=== PATIENT | female | born 1930 | race African-American/Black ===

== ENCOUNTER 2018-12-19 08:58 | Emergency (ER) | payer MEDICARE, OTHER ==
--- NOTE | 2018-12-19 09:47 | ER Document Report ---
ED Medical Screen (RME) - General Chief Complaint: Weakness Stated Complaint: POSSIBLE STROKE Time Seen by Provider: 12/19/18 09:37 Primary Care Provider: KERA FIERRO MD [Primary Care Provider] - Follow up as needed Notes: HPI: 88-year-old female brought in by her daughters for concern of left-sided weakness since Wednesday morning, approximately 24 hours ago was her last known well time. He states she had a right-sided lean when she was sitting in her chair and she appeared to have some facial droop where she could not drink liquids appropriately and it was coming out of her mouth yesterday around 2pm. They also state her left leg appears heavy and she is not walking normally and walks like she is going to fall over. No history of this before. She has not been compliant with all of her medications to include her thyroid medication. She denies pain anywhere. No fall or trauma. She does take a baby aspirin daily. no other blood thinners. No prior history of NV or CVA per patient and daughter at bedside. She also has some urinary frequency. no other uti sx. She is a diabetic and states her sugars have been running high and her sugar was 340 yesterday when they checked it before giving her insulin. No other changes in medication or diet. she has not sought care until now. No other complaints at this time. pcp was dr bailey before he . she hasn't really f/u since. ROS neg to include 10 systems, unless mentioned in the hpi. PE:>>>> PHYSICAL_EXAM: GENERAL_APPEARANCE: well_nourished, alert, cooperative, no_acute_distress, no_obvious_discomfort. pleasant, elderly black female, smiling, speaking in full sentences, in no sign of pain or resp distress, two adult female daughter at bedside VITALS: reviewed, see vital signs table. HEAD: no_swelling\tenderness on the head. normocephalic. atraumatic. no ross signs. no raccoons eyes. EYES: PERRL, EOMI, conjunctiva_clear. NOSE: no_nasal_discharge. MOUTH: (-)decreased moisture. THROAT: no_tonsilar_inflammation, no_airway_obstruction. no_lymphadenopathy. no drooling, tripoding, voice change, or stridor. NECK: supple, no_neck_tenderness, full rom. full strength. no meningeal signs. BACK: no_back_tenderness. CHEST_WALL: no_chest_tenderness. no overlying skin changes LUNGS: no_wheezing, ctab (-)accessory muscle use, good air exchange bilateral. HEART: normal_rate, normal_rhythm, ABDOMEN: normal_BS, soft, no_abd_tenderness, (-)guarding, (-)rebound, no distension or peritoneal signs. no cva ttp EXTREMITIES: strength 5/5 in right upper and lower _extremities there is slight decreased strength in LUE and LLE, good pulses in all_extremities, no_tenderness in the extremities, almost 1+ pitting_edema in lower extremities bilat. full rom. gait not assessed. good pulses. brisk cap refill. 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 neg heather sign NEURO: motor and sensation intact, pt has a left facial droop, asymmetrical smile. symmetric forehead raise. slight decreased eyelid strength on the left. slightly pos pronator drift on the left. SKIN: warm, dry, good_color, no_rash. MENTAL_STATUS: speech_clear, normal_affect, responds_appropriately to questions. MDM: I have ordered labs and initial work-up and patient will be transferred to the main ER for further work-up. I have greeted and performed a rapid initial assessment of this patient. A comprehensive ED assessment and evaluation of the patient, analysis of test results and completion of medical decision making process will be conducted by an additional ED providers. Documentation achieved through voice recording which my lead to some occasional accidental typographical errors. Extensive efforts have been made to proof read documentation to make sure these are the least as possible Temp Pulse Resp BP Pulse Ox 12/19/18 09:05 98.1 F 84 18 182/82 H 97 Category Date Time Status Accucheck (ED) NOW Care 12/19/18 09:49 Ordered ED Nursing Stroke Protocol NOW Care 12/19/18 09:50 Ordered EKG Documentation STAT Care 12/19/18 09:48 Ordered EKG Documentation STAT Care 12/19/18 09:48 Ordered Head of Bed >30 Degrees (ED) NOW Care 12/19/18 09:50 Ordered MEND Neuro Exam STAT,Q3 Care 12/19/18 09:50 Ordered Monitoring [Continuous Cardiac Monitoring (ED)] NOW Care 12/19/18 09:49 Ordered Oxygen (ED) Nasal Cannula 2 lpm Care 12/19/18 09:50 Ordered PCT AccuChek Documentation NOW Care 12/19/18 09:49 Ordered Pulse Oximeter Continuous (ED) CONTINUOUS Care 12/19/18 09:50 Ordered Saline Lock (ED) NOW Care 12/19/18 09:50 Ordered CHEST 2 VIEWS [RAD] Stat Exams 12/19/18 09:[address] HEAD WITHOUT [CT] Stat Exams 12/19/18 09:49 Ordered CBC WITH DIFF [HEME] Stat Lab 12/19/18 09:47 Ordered COMPREHENSIVE METABOLIC PANEL [CHEM] Stat Lab 12/19/18 09:47 Ordered CREATINE KINASE MB [CHEM] Stat Lab 12/19/18 09:48 Ordered CREATINE KINASE [CHEM] Stat Lab 12/19/18 09:48 Ordered MAGNESIUM [CHEM] Stat Lab 12/19/18 09:48 Ordered NT PRO BNP [CHEM] Stat Lab 12/19/18 09:48 Ordered PARTIAL THROMBOPLASTIN TIME [COAG] Stat Lab 12/19/18 09:49 Ordered PROTHROMBIN TIME/INR [COAG] Stat Lab 12/19/18 09:48 Ordered T4 [FREE T4 (FREE THYROXINE)] [CHEM] Stat Lab 12/19/18 09:50 Ordered THYROID STIMULATING HORMONE [CHEM] Stat Lab 12/19/18 09:50 Ordered TROPONIN I [CHEM] Stat Lab 12/19/18 09:48 Ordered URINALYSIS [URIN] Stat Lab 12/19/18 09:48 Uncollected EKG ER ONLY [ER] Stat Oth 12/19/18 Ordered TRAVEL OUTSIDE OF THE [place] IN LAST 30 DAYS: No - Related Data Allergies/Adverse Reactions: No Known Allergies Allergy (Verified 12/19/18 09:05) Past Medical History - Social History Chew tobacco use (# tins/day): No Frequency of alcohol use: None Drug Abuse: None Renal/ Medical History: Denies: Hx Peritoneal Dialysis Physical Exam - Vital signs Vitals: Temp Pulse Resp BP Pulse Ox 98.1 F 84 18 182/82 H 97 12/19/18 09:05 12/19/18 09:05 12/19/18 09:05 12/19/18 09:05 12/19/18 09:05 Course - Vital Signs Vital signs: Temp Pulse Resp BP Pulse Ox 98.1 F 84 18 182/82 H 97 12/19/18 09:05 12/19/18 09:05 12/19/18 09:05 12/19/18 09:05 12/19/18 09:05 Doctor's Discharge - Discharge Referrals: KERA FIERRO MD [Primary Care Provider] - Follow up as needed
[2018-12-19 10:30] LABS: APPEARANCE,URINE CLEAR; BILIRUBIN,URINE NEGATIVE (NEGATIVE); COLOR,URINE YELLOW; GLUCOSE, URINE >=500 mg/dL (NEGATIVE); KETONES,URINE 20 mg/dL (NEGATIVE); LEUKOCYTE ESTERASE,URINE NEGATIVE (NEGATIVE); NITRITE,URINE NEGATIVE (NEGATIVE); PROTEIN,URINE 100 mg/dL (NEGATIVE); URINE SPECIFIC GRAVITY 1.026; UROBILINOGEN,URINE NEGATIVE mg/dL (<2.0)
[2018-12-19 10:31] LABS: INTERNATIONAL RATION (INR) 1.08; PARTIAL THROMBOPLASTIN TIME 31.5 SEC (23.5-35.8)
[2018-12-19 10:43] LABS: HEMATOCRIT 37.3 % (36.0-47.0); HEMOGLOBIN 12.1 g/dL (12.0-15.5); MEAN CORPUSCULAR HEMOGLOBIN 23.7 pg (27.0-33.4); MEAN CORPUSCULAR HGB CONC 32.6 g/dL (32.0-36.0); MEAN CORPUSCULAR VOLUME 73 fl (80-97); PLATELET COUNT 174 10^3/uL (150-450); RED BLOOD COUNT 5.13 10^6/uL (3.72-5.28); RED CELL DISTRIBUTION WIDTH 16.7 % (11.5-14.0); WHITE BLOOD COUNT 4.1 10^3/uL (4.0-10.5)
[2018-12-19 10:52] LABS: ALBUMIN 4.2 g/dL (3.5-5.0); ALKALINE PHOSPHATASE 82 U/L (38-126); ANION GAP 10 (5-19); ASPARTATE AMINO TRANSFERASE 28 U/L (14-36); BILIRUBIN,DIRECT 0.2 mg/dL (0.0-0.4); BILIRUBIN,TOTAL 0.6 mg/dL (0.2-1.3); BLOOD UREA NITROGEN 13 mg/dL (7-20); CALCIUM 9.5 mg/dL (8.4-10.2); CARBON DIOXIDE 24 mmol/L (22-30); CHLORIDE 109 mmol/L (98-107); GLUCOSE 125 mg/dL (75-110); POTASSIUM 3.7 mmol/L (3.6-5.0); TOTAL PROTEIN 7.8 g/dL (6.3-8.2)
[2018-12-19 10:56] LABS: CREATINE KINASE MB 2.66 ng/mL (<4.55); NT PRO BNP 418 pg/mL (<450); TROPONIN I < 0.012 ng/mL
--- NOTE | 2018-12-19 11:01 | RADIOLOGY REPORT (SQ) ---
EXAM DESCRIPTION: CHEST SINGLE VIEW COMPLETED DATE/TIME: 12/19/2018 10:39 am REASON FOR STUDY: left sided weakness, ams COMPARISON: None. EXAM PARAMETERS: NUMBER OF VIEWS: One view. TECHNIQUE: Single frontal radiographic view of the chest acquired. RADIATION DOSE: NA LIMITATIONS: None. FINDINGS: LUNGS AND PLEURA: No opacities, masses or pneumothorax. No pleural effusion. MEDIASTINUM AND HILAR STRUCTURES: No masses. Contour normal. HEART AND VASCULAR STRUCTURES: Heart normal in size. Normal vasculature. BONES: No acute findings. HARDWARE: None in the chest. OTHER: No other significant finding. IMPRESSION: NO ACUTE RADIOGRAPHIC FINDING IN THE CHEST. TECHNICAL DOCUMENTATION: JOB ID: [id number] [employer]- All Rights Reserved Reading location - IP/workstation name: [email or web address]
[2018-12-19 11:03] LABS: FREE T4 (FREE THYROXINE) 1.51 ng/dL (0.78-2.19)
[2018-12-19 11:12] LABS: ABSOLUTE LYMPHOCYTES# (MANUAL) 1.4 10^3/uL (0.5-4.7); ABSOLUTE MONOCYTES # (MANUAL) 0.1 10^3/uL (0.1-1.4); BASOPHILS % (MANUAL) 0 % (0-2); EOSINOPHILS % (MANUAL) 5 % (0-6); LYMPHOCYTES % (MANUAL) 34 % (13-45); MONOCYTES % (MANUAL) 3 % (3-13); SEGMENTED NEUTROPHILS % (MAN) 57 % (42-78); TOTAL CELLS COUNTED 100
[2018-12-19 11:13] LABS: ANISOCYTOSIS 1+; BURR CELLS SLIGHT; HYPOCHROMASIA 1+; OVALOCYTES 2+; PLATELET COMMENT ADEQUATE; POIKILOCYTOSIS 2+; SCHISTOCYTES 1+
[2018-12-19 11:17] LABS: THYROID STIMULATING HORMONE 0.57 uIU/mL (0.47-4.68)
[2018-12-19] MEDS ORDERED: NORMAL SALINE 1000 ML 1,000 ML IV ONE (11:17)
--- NOTE | 2018-12-19 11:17 | RADIOLOGY REPORT (SQ) ---
EXAM DESCRIPTION: CT HEAD WITHOUT COMPLETED DATE/TIME: 12/19/2018 11:01 am REASON FOR STUDY: left sided weakness, ams COMPARISON: None. TECHNIQUE: Axial images acquired through the brain without intravenous contrast. Images reviewed wi th bone, brain and subdural windows. Additional sagittal and coronal reconstructions were generated. Images stored on PACS. All CT scanners at this facility use dose modulation, iterative reconstruction, and/or weight based d osing when appropriate to reduce radiation dose to as low as reasonably achievable (ALARA). [facility]: Dose Right [facility]: CareDose [facility]: Dose Right [facility]: Teradose 4D [facility]: Smart Technologies RADIATION DOSE: CT Rad equipment meets quality standard of care and radiation dose reduction techniq ues were employed. CTDIvol: 53.2 mGy. DLP: 1097 mGy-cm. mGy. LIMITATIONS: None. FINDINGS: VENTRICLES: Prominent ventricles secondary to involutional atrophy. CEREBRUM: Mild cortical atrophy. No masses. No hemorrhage. No midline shift. No evidence for acut e infarction. Areas of low density in the white matter most likely chronic small vessel ischemic arriaga ges. CEREBELLUM: No masses. No hemorrhage. No alteration of density. No evidence for acute infarction. EXTRAAXIAL SPACES: No fluid collections. No masses. ORBITS AND GLOBE: No intra- or extraconal masses. Normal contour of globe without masses. CALVARIUM: No fracture. PARANASAL SINUSES: No fluid or mucosal thickening. SOFT TISSUES: No mass or hematoma. OTHER: No other significant finding. IMPRESSION: Involutional changes with chronic microvascular ischemia. No acute intracranial imaging findings. EVIDENCE OF ACUTE STROKE: NO. COMMENT: Quality ID # [id number]: Final reports with documentation of one or more dose reduction techniques (e.g., Automated exposure control, adjustment of the mA and/or kV according to patient size, use of iterative reconstruction technique) TECHNICAL DOCUMENTATION: JOB ID: [id number] [employer]- All Rights Reserved Reading location - IP/workstation name: [email or web address]
--- NOTE | 2018-12-19 11:17 | ER Document Report ---
ED General - General Chief Complaint: Weakness Stated Complaint: POSSIBLE STROKE Time Seen by Provider: 12/19/18 09:37 Primary Care Provider: KERA FIERRO MD [NO LOCAL MD] - Follow up as needed Notes: 88-year-old female brought in by her daughters for concern of left-sided (left leg only) weakness since Wednesday morning, approximately 24 hours ago was her last known well time. They also state her left leg appears heavy and she is not walking normally and walks like she is going to fall over. No history of this b efore. She has not been compliant with all of her medications to include her thyroid medication. She denies pain anywhere. No fall or trauma. She does take a baby aspirin daily. no other blood thinners. No prior history of RI or CVA per patient and daughter at bedside. She also has some urinary frequency. no other uti sx. She is a diabetic and states her sugars have been running high and her sugar was 340 yesterday when they checked it before giving her insulin. No other changes in medication or diet. she has not sought care until now. No other complaints at this time. pcp was dr bailey before he . she hasn't really f/u since. The pt see's Dr. Klein neurology - he is planning on doing an EMG on her left leg due to worsening sciatic nerve issues TRAVEL OUTSIDE OF THE [place] IN LAST 30 DAYS: No - Related Data Allergies/Adverse Reactions: No Known Allergies Allergy (Verified 12/19/18 09:05) Past Medical History - Social History Smoking Status: Former Smoker Chew tobacco use (# tins/day): No Frequency of alcohol use: None Drug Abuse: None Family History: Reviewed & Not Pertinent Patient has suicidal ideation: No Patient has homicidal ideation: No Renal/ Medical History: Denies: Hx Peritoneal Dialysis Review of Systems - Review of Systems Constitutional: denies: Chills, Fever EENT: denies: Double vision, Throat pain Cardiovascular: denies: Chest pain, Syncope, Dizziness, Edema Respiratory: denies: Short of breath, Wheezing Gastrointestinal: denies: Abdominal pain, Diarrhea, Nausea, Vomiting Genitourinary: denies: Dysuria, Hematuria Musculoskeletal: Back pain, Other - Left leg pain and weakness Neurological/Psychological: denies: Headaches, Numbness, Tingling -: Yes All other systems reviewed and negative Physical Exam - Vital signs Vitals: Temp Pulse Resp BP Pulse Ox 98.1 F 84 18 182/82 H 97 12/19/18 09:05 12/19/18 09:05 12/19/18 09:05 12/19/18 09:05 12/19/18 09:05 - Notes Notes: GENERAL_APPEARANCE: well_nourished, alert, cooperative, no_acute_distress, no_obvious_discomfort. VITALS: reviewed, see vital signs table. HEAD: no_swelling\tenderness on the head. EYES: PERRL, EOMI, conjunctiva_clear. NOSE: no_nasal_discharge. MOUTH: (-)decreased moisture. THROAT: no_tonsilar_inflammation, no_airway_obstruction. no_lymphadenopathy NECK: supple, no_neck_tenderness, (-)thyromegaly. BACK: no_back_tenderness. CHEST_WALL: no_chest_tenderness. LUNGS: no_wheezing, no_rales, no_rhonchi, (-)accessory muscle use, good air exchange bilateral. HEART: normal_rate, normal_rhythm, normal_S1, normal_S2, (-)S3, (-)S4, no_murmur, no_rub. ABDOMEN: normal_BS, soft, no_abd_tenderness, (-)guarding, (-)rebound, no_organomegaly, no_abd_masses. EXTREMITIES: strength 5/5 in all_extremities, good pulses in all_extremities, no_swelling\tenderness in the extremities, no_edema. SKIN: warm, dry, good_color, no_rash. MENTAL_STATUS: speech_clear, oriented_X_3, normal_affect, responds_appropriately to questions. NEURO: Motor weakness is all intact very slight perceived weakness left lower extremity 4/5 neg Sensory Deficits on exam, CN 2-12 intact, DTR 2+ symmetric x 4, No cerbellar signs NIH Stroke Scale/Score (NIHSS) RESULT SUMMARY: 1 points NIH Stroke Scale INPUTS: 1A: Level of consciousness > 0 = Alert; keenly responsive 1B: Ask month and age > 0 = Both questions right 1C: 'Blink eyes' & 'squeeze hands' > 0 = Performs both tasks 2: Horizontal extraocular movements > 0 = Normal 3: Visual fleming > 0 = No visual loss 4: Facial palsy > 0 = Normal symmetry 5A: Left arm motor drift > 0 = No drift for 10 seconds 5B: Right arm motor drift > 0 = No drift for 10 seconds 6A: Left leg motor drift > 1 = Drift, but doesn't hit bed 6B: Right leg motor drift > 0 = No drift for 5 seconds 7: Limb Ataxia > 0 = No ataxia 8: Sensation > 0 = Normal; no sensory loss 9: Language/aphasia > 0 = Normal; no aphasia 10: Dysarthria > 0 = Normal 11: Extinction/inattention > 0 = No abnormality Course - Re-evaluation Re-evalutation: 12/19/18 11:14 88-year-old female who was initially brought in through triage and the initial complaint was worried as left-sided weakness. Her last seen normal was Wednesday. The patient buried her daughter that day she was standing out in the heat. She has not quite felt well since that day. She states that she has chronic left l eg issues. She sees a neurologist in [facility] and he is planning to do an EMG nerve conduction. The patient's primary care doctor recently and they are arranging her with a new primary care. On my exam and history the patient's only complaint is her left leg she denies any facial numbness tingling weakness. There was something in the triage note about she was drooling with facial droop. The patient denies this to me and I cannot appreciate any of that on exam. She may be has a slight drift on the left. 4 out of 5 strength otherwise there is no motor no sensory deficits her stroke scale is 1 just based on the drift of the left leg. My thought is the patient may have had some mild dehydration due to being out in the heat on Wednesday for her daughter's we will hydrate her with a liter of fluid we will scan her head looking for any kind of BANKRUPTCY ASSISTANT issue I will scan her back looking for some kind of significant back issue for sciatica. Otherwise we will do lab work check a urine. 12/19/18 12:40 Work-up here has been reassuring. CT scan shows chronic changes noted. No hemorrhages space-occupying lesions or obvious strokes. Patient's been having symptoms since Wednesday it is noted. The patient CT scan of the lumbar spine shows lots of degenerative changes and some canal stenosis. All this is chronic but this may be what is causing the increased sciatica that the patient has. Everything thing else looked good really from the history that I did I do not believe the patient has had a stroke. I will speak with the patient and family further I think the most important thing here is follow-up with her already established neurologist possibly getting MRI of the lumbar spine and then spine referral. 12/19/18 12:53 Spoke with family they are comfortable going home. Going to place patient on a low-dose blood pressure medicine and something for pain for home again her main complaint is pain in her left leg she has no signs of stroke now. The leg weakness I think is from some spinal stenosis that was seen on the lumbar spine CT. She will need MRI and she is already established with neurology at [facility]. She will likely need spine surgery referral or pain management for epidural steroid injections. - Vital Signs Vital signs: Temp Pulse Resp BP Pulse Ox 98.1 F 84 24 H 181/107 H 98 12/19/18 09:05 12/19/18 09:05 12/19/18 11:11 12/19/18 11:11 12/19/18 11:11 - Laboratory Result Diagrams: 12/19/18 10:07 12/19/18 10:07 Laboratory results interpreted by me: 12/19/18 12/19/18 12/19/18 10:06 10:07 10:07 MCV 73 L MCH 23.7 L RDW 16.7 H Chloride Glucose POC Glucose 118 H Creatine Kinase 159 H Urine Protein Urine Glucose (UA) Urine Ketones Urine Blood 12/19/18 12/19/18 10:07 10:07 MCV MCH RDW Chloride 109 H Glucose 125 H POC Glucose Creatine Kinase Urine Protein 100 H Urine Glucose (UA) >=500 H Urine Ketones 20 H Urine Blood SMALL H - Diagnostic Test Radiology reviewed: Reports reviewed Radiology results interpreted by me: 12/19/18 12:39 Chest X-Ray 12/19/18 09:49 IMPRESSION: NO ACUTE RADIOGRAPHIC FINDING IN THE CHEST. Head CT 12/19/18 09:49 IMPRESSION: Involutional changes with chronic microvascular ischemia. No acute intracranial imaging findings. EVIDENCE OF ACUTE STROKE: NO. Lumbar Spine CT 12/19/18 11:09 IMPRESSION: Scoliosis. Facet arthropathy. Disc changes as described above. Most significant findings are at L3-4 and L4-5 where there is significant central canal stenosis as well as foraminal stenoses. - EKG Interpretation by Me EKG shows normal: Sinus rhythm Rate: Normal Rhythm: NSR, PVC's Discharge - Discharge Clinical Impression: Sciatica of left side Hypertension Qualifiers: Hypertension type: essential hypertension Qualified Code(s): I10 - Essential (primary) hypertension Condition: Good Disposition: HOME, SELF-CARE Instructions: Sciatica ([facility]) Additional Instructions: Please follow-up with Dr. Klein for your symptoms. You will likely need an MRI of the lumbar spine and likely referral to a strategic debriefing specialist. Dr. Klein can continue with the EMG testing. Any other symptoms of concern that we have discussed return to the nearest ER. Prescriptions: Hydrochlorothiazide [Hydrodiuril 25 mg Tablet] 25 mg PO QAM #30 tablet Hydrocodone/Acetaminophen [Hydrocodone-Acetamin 5-300 mg] 0.5 each PO TID PRN # 12 tablet PRN Reason: Pain Scale Of 5 Referrals: KERA FIERRO MD [NO LOCAL MD] - Follow up as needed
--- NOTE | 2018-12-19 12:11 | RADIOLOGY REPORT (SQ) ---
EXAM DESCRIPTION: CT LUMBAR SPINE WITHOUT COMPLETED DATE/TIME: 12/19/2018 11:48 am REASON FOR STUDY: left leg pain sciatica COMPARISON: None. TECHNIQUE: Axial images acquired through the lumbar spine without intravenous contrast. Images revi ewed with lung, soft tissue and bone windows. Reconstructed coronal and sagittal MPR images reviewe d. All images stored on PACS. All CT scanners at this facility use dose modulation, iterative reconstruction, and/or weight based d osing when appropriate to reduce radiation dose to as low as reasonably achievable (ALARA). [facility]: Dose Right [facility]: CareDose [facility]: Dose Right [facility]: Teradose 4D [facility]: [employer] RADIATION DOSE: mGy. LIMITATIONS: None. FINDINGS: SEGMENTATION: Normal. No transitional anatomy. ALIGNMENT: Dextroscoliosis. VERTEBRAL BODIES: No fractures. No dislocation. No acute findings. DISCS: All the lumbar disc spaces are narrowed. Vacuum disc phenomenon is seen in all the lumbar dis c except at L5-S1. L1-L2: Facet hypertrophy on the left that results in mild left foraminal stenosis. No significant di sc pathology. L2-L3: Mild concentric disc bulging. Hypertrophic facet changes on the left. Minimal left foraminal stenosis. No significant central canal stenosis. L3-L4: Disc bulging to the left. This primarily lateral but also involves the left neural foramen. Hypertrophic facet changes and ligament hypertrophy result in significant central canal stenosis as w ell. L4-L5: Mild concentric disc bulging. Facet and ligament hypertrophy. Significant central canal sten osis. The disc may contact the exiting nerve root on the left outside of the neural foramen. L5-S1: No significant protrusions. No significant stenosis. PEDICLES, TRANSVERSE PROCESSES: No fractures. No dislocation. No acute findings. FACETS, POSTERIOR ELEMENTS: Hypertrophic facet changes at multiple levels. HARDWARE: None in the spine. VISUALIZED RIBS: No fractures. SOFT TISSUES: No significant or acute finding in adjacent soft tissues. OTHER: No other significant finding. IMPRESSION: Scoliosis. Facet arthropathy. Disc changes as described above. Most significant findi ngs are at L3-4 and L4-5 where there is significant central canal stenosis as well as foraminal steno ses. TECHNICAL DOCUMENTATION: JOB ID: [id number] Quality ID # [id number]: Final reports with documentation of one or more dose reduction techniques (e.g., Au tomated exposure control, adjustment of the mA and/or kV according to patient size, use of iterative reconstruction technique) 2010 [employer]- All Rights Reserved Reading location - IP/workstation name: [email or web address]
[2018-12-19 13:14] VITALS: BP 189/84
--- NOTE | 2018-12-20 09:34 | EKG REPORT ---
SEVERITY:- ABNORMAL ECG - SINUS RHYTHM VENTRICULAR TRIGEMINY FIRST DEGREE AV BLOCK PROBABLE LEFT ATRIAL ABNORMALITY LEFT AXIS DEVIATION LEFT VENTRICULAR HYPERTROPHY : Confirmed by: Iliana Fajardo 20-Dec-2018 09:33:58
== END 2018-12-19 13:43 | disposition home or self-care (01) ==
LOC: ER 08:58
DX: M54.32 Sciatica, left side (principal); I10 Essential (primary) hypertension; M62.81 Muscle weakness (generalized); Z79.899 Other long term (current) drug therapy; Z79.82 Long term (current) use of aspirin; Z87.891 Personal history of nicotine dependence
CPT/HCPCS: 93005; 36415; 84439; 82553; 82962; 82550; 83735; 84443; 85025; 85610; 85730; 80053; 81001; 84484; 83880; 71045; 70450; 72131; 93010; J7030; 96360; 99284

== ENCOUNTER 2019-05-06 22:39 | Emergency (ER) | payer MEDICARE, OTHER ==
--- NOTE | 2019-05-07 01:07 | ER Document Report ---
ED Medical Screen (RME) - General Chief Complaint: Hip Pain Stated Complaint: LEFT HIP PAIN/FALL Time Seen by Provider: 05/07/19 01:03 Primary Care Provider: LUCAS GARVEY MD [Primary Care Provider] - Follow up as needed Mode of Arrival: Wheelchair Information source: Patient Notes: 88-year-old female presented to ED for complaint of severe pain to her left hip and low back. She has a history of low back pain and does seen her primary care and pain management but she fell landing on her buttocks on morning stated she was able to get up at that time but is slowly the pain is increased to the point where she is not able to put any weight on her left hip. Patient is alert oriented respirations regular nonlabored. She is in a wheelchair at this time. I have greeted and performed a rapid initial assessment of this patient. A comprehensive ED assessment and evaluation of the patient, analysis of test results and completion of medical decision making process will be conducted by an additional ED providers. TRAVEL OUTSIDE OF THE [place] IN LAST 30 DAYS: No - Related Data Allergies/Adverse Reactions: No Known Allergies Allergy (Verified 12/19/18 09:05) Past Medical History - Social History Chew tobacco use (# tins/day): No Frequency of alcohol use: None Drug Abuse: None Endocrine Medical History: Reports: Hx Diabetes Mellitus Type 2 Renal/ Medical History: Denies: Hx Peritoneal Dialysis Physical Exam - Vital signs Vitals: Temp Pulse Resp BP Pulse Ox 98.3 F 83 24 H 189/89 H 95 05/06/19 22:48 05/06/19 22:48 05/06/19 22:48 05/06/19 22:48 05/06/19 22:48 Course - Vital Signs Vital signs: Temp Pulse Resp BP Pulse Ox 98.0 F 78 24 H 158/102 H 98 05/07/19 00:54 05/07/19 00:54 05/06/19 22:48 05/07/19 00:54 05/07/19 00:54 Doctor's Discharge - Discharge Referrals: LUCAS GARVEY MD [Primary Care Provider] - Follow up as needed
--- NOTE | 2019-05-07 01:57 | RADIOLOGY REPORT (SQ) ---
EXAM DESCRIPTION: XR HIP 2 OR MORE VIEWS COMPLETED DATE/TME: 05/07/2019 01:04 CLINICAL HISTORY: 88 years, Female, pain since fell on raymundo morning COMPARISON: None. FINDINGS: Single view of the pelvis and lateral view of the left hip. No acute fracture. Osteopenia. Mild bilateral hip joint space narrowing, greater on the right than the left. Pessary identified. Atherosclerotic vascular calcification. Degenerative changes of visualized spine. IMPRESSION: 1. No left hip fracture identified. copyright 2010 [employer]- All Rights Reserved
--- NOTE | 2019-05-07 01:59 | RADIOLOGY REPORT (SQ) ---
EXAM DESCRIPTION: XR LUMBAR SPINE ANTEROPOSTERIOR, LATERAL, AND OBLIQUES COMPLETED DATE/TME: 05/07/2019 01:05 CLINICAL HISTORY: 88 years, Female, fall hx of back pain COMPARISON: 12/19/2018 FINDINGS: 4 views of the lumbar spine. Dextroconvex scoliosis of the lumbar spine. Osteopenia. 5 nonrib-bearing lumbar vertebrae. Pedicles identified throughout. Lumbar vertebral body height preserved. Mild multilevel loss of intervertebral disc height with endplate spondylosis and facet arthropathy. No acute abnormalities of the sacrum. Atherosclerotic vascular calcification. Pessary in the pelvis. IMPRESSION: 1. No acute abnormality of the lumbar spine by plain film criteria. 2. Degenerative change of the lumbar spine with dextroconvex scoliosis. copyright 2010 [employer]- All Rights Reserved
[2019-05-07] MEDS ORDERED: DEXAMETHASONE SOD PHOSPHATE INJ 4 MG/1 ML VIAL IV ONE (05:16)
--- NOTE | 2019-05-07 05:16 | ER Document Report ---
ED Hip Pain/Injury - General Chief Complaint: Hip Pain Stated Complaint: LEFT HIP PAIN/FALL Time Seen by Provider: 05/07/19 01:03 Primary Care Provider: LUCAS GARVEY MD [Primary Care Provider] - Follow up as needed Mode of Arrival: Wheelchair TRAVEL OUTSIDE OF THE [place] IN LAST 30 DAYS: No - HPI Patient complains to provider of: Pain, Hip Occurred: Other - Chronic back pain left hip pain with history of sciatica. Patient is followed in a pain clinic and has received steroid injections in her back. Currently she is only taking Tylenol 1000 mg twice a day without any relief. There is been no new injury or trauma. Onset/Duration: Constant, Worse Quality of pain: Sharp Severity: Severe Pain Level: 5 Context: No trauma Skin Color: Normal Skin Temperature: Warm Rotation of extremity: None Pain with palpation of the pelvis: Yes - Pain is posterior hip and lateral down leg to the back of the knee Associated Symptoms: None - Related Data Allergies/Adverse Reactions: No Known Allergies Allergy (Verified 12/19/18 09:05) Past Medical History - General Information source: Patient - Social History Smoking Status: Never Smoker Chew tobacco use (# tins/day): No Frequency of alcohol use: None Drug Abuse: None Family History: Reviewed & Not Pertinent Patient has suicidal ideation: No Patient has homicidal ideation: No Endocrine Medical History: Reports: Hx Diabetes Mellitus Type 2 Renal/ Medical History: Denies: Hx Peritoneal Dialysis Past Surgical History: Reports: Hx Orthopedic Surgery - BILAT TKA Review of Systems - Review of Systems Musculoskeletal: See HPI, Joint pain, Other - Sciatica Physical Exam - Vital signs Vitals: Temp Pulse Resp BP Pulse Ox 98.3 F 83 24 H 189/89 H 95 05/06/19 22:48 05/06/19 22:48 05/06/19 22:48 05/06/19 22:48 05/06/19 22:48 Interpretation: Normal - Notes Notes: Patient is in pain in her left hip and left leg radiating down to the back of her knee - General General appearance: Appears well, Alert - HEENT Head: Normocephalic, Atraumatic Eyes: Normal Pupils: PERRL - Respiratory Respiratory status: No respiratory distress Chest status: Nontender Breath sounds: Normal Chest palpation: Normal - Cardiovascular Rhythm: Regular Heart sounds: Normal auscultation Murmur: No - Abdominal Inspection: Normal Distension: No distension Bowel sounds: Normal Tenderness: Nontender Organomegaly: No organomegaly - Back Back: Normal, Nontender - Extremities General upper extremity: Normal inspection, Nontender, Normal color, Normal ROM, Normal temperature General lower extremity: Normal inspection, Nontender, Normal color, Normal ROM, Normal temperature, Normal weight bearing. No: Kasey's sign - Neurological Neuro grossly intact: Yes Cognition: Normal Orientation: AAOx4 [place] Coma Scale Eye Opening: Spontaneous Laurita Coma Scale Verbal: Oriented [place] Coma Scale Motor: Obeys Commands Laurita Coma Scale Total: 15 Speech: Normal Motor strength normal: LUE, RUE, LLE, RLE Sensory: Normal - Psychological Associated symptoms: Normal affect, Normal mood - Skin Skin Temperature: Warm Skin Moisture: Dry Skin Color: Normal Course - Vital Signs Vital signs: Temp Pulse Resp BP Pulse Ox 97.6 F 73 18 173/69 H 98 05/07/19 05:21 05/07/19 05:21 05/07/19 05:21 05/07/19 05:21 05/07/19 05:21 Discharge - Discharge Clinical Impression: Sciatica of left side associated with disorder of lumbar spine Condition: Fair Disposition: HOME, SELF-CARE Additional Instructions: Sciatica Your symptoms suggest "sciatica." The pain of sciatica typically radiates down the leg. Numbness in the foot or calf may also occur. Sciatica is caused by irritation of the sciatic nerve or its branches. The irritation can be due to a herniated disk in the spine, swelling and inflammation in the muscles surrounding the sciatic nerve, or direct injury of the nerve itself. Most cases of sciatica will resolve with medical treatment. Bed rest is usually recommended initially. Surgery is only necessary when the condition will not improve with rest and antiinflammatory medication. Muscle relaxers are often given if muscle soreness is present. A CAT scan of the back may be performed if a herniated disk is suspected. Re-examination is necessary if you develop increasing numbness, localized weakness in the foot or ankle, or if the pain does not respond to rest. Prescriptions: Methylprednisolone [Medrol Dosepack (4 mg/Tab) 21 Tab/Dosepak] 4 mg PO ASDIR PRN #21 tab.ds.[id number] PRN Reason: Forms: Elevated Blood Pressure Referrals: LUCAS GARVEY MD [Primary Care Provider] - Follow up as needed
[2019-05-07] MEDS ORDERED: DEXAMETHASONE SOD PHOS INJ 10 MG/1 ML VIAL IM ONE (05:17)
[2019-05-07 05:21] VITALS: BP 173/69
== END 2019-05-07 06:15 | disposition home or self-care (01) ==
LOC: ER 22:39
DX: M54.42 Lumbago with sciatica, left side (principal); M25.552 Pain in left hip; G89.29 Other chronic pain; Z79.899 Other long term (current) drug therapy; E11.9 Type 2 diabetes mellitus without complications
CPT/HCPCS: 99283; 96372; 73502; 72110; J1100

== ENCOUNTER → 2019-05-12 | Emergency (ER) | payer MEDICARE, OTHER ==
[~2019-05-12] MED LIST: ALTEPLASE INJ 100 MG VIAL ONE; AMIODARONE HCL INJ 150 MG/3 ML VIAL IV ONE; ATROPINE SULFATE INJ 1 MG/10 ML DISP.SYRIN IV ONE; CALCIUM GLUCONATE 1000 MG/10 ML INJ IV ONE; EPINEPHRINE INJ 1 MG/10 ML DISP.SYRIN ONE; EPINEPHRINE INJ/PF 1 MG/1 ML AMPULE ONE; ETOMIDATE INJ/PF 20 MG/10 ML SDV IV ONE; FENTANYL CITRATE INJ/PF 100 MCG/2 ML AMPUL IV ONE; FENTANYL CITRATE INJ/PF 100 MCG/2 ML AMPUL ONE; LIDOCAINE 2% INJ-PF (100 MG/5 ML) SYRINGE ONE; PROPOFOL 1,000 MG/100 ML INFUS..BTL IV PRN; PROPOFOL INJ 200 MG/20 ML VIAL IV ONE; ROCURONIUM BROMIDE INJ 50 MG/5 ML VIAL IV ONE; SODIUM BICARBONATE 8.4% INJ 50 MEQ/50 ML DISP.SYRIN IV ONE; SODIUM BICARBONATE 8.4% INJ 50 MEQ/50 ML DISP.SYRIN ONE
[2019-05-12 17:46] VITALS: BP 89/69
--- NOTE | 2019-05-12 23:02 | ER Document Report ---
ED General - General Chief Complaint: possible syncope Stated Complaint: SYNCOPE EPISODE Primary Care Provider: LUCAS GARVEY MD [Primary Care Provider] - Follow up as needed TRAVEL OUTSIDE OF THE [place] IN LAST 30 DAYS: No - Related Data Allergies/Adverse Reactions: No Known Allergies Allergy (Verified 12/19/18 09:05) Past Medical History - Social History Smoking Status: Unknown if Ever Smoked Family History: Reviewed & Not Pertinent Patient has suicidal ideation: No Patient has homicidal ideation: No Endocrine Medical History: Reports: Hx Diabetes Mellitus Type 2 Renal/ Medical History: Denies: Hx Peritoneal Dialysis Past Surgical History: Reports: Hx Orthopedic Surgery - BILAT TKA Physical Exam - Vital signs Vitals: Pulse Ox 90 L 05/12/19 15:32 - Notes Notes: Patient was brought in by paramedics after syncopal episode at home. According to family she was sitting on the toilet so she felt lightheaded and slumped over. She did not actually fall off the toilet. Remembers helped her up until paramedics arrived she was transported to the hospital. There is no seizure activity noted at this time and family members indicate she was not complaining of any chest pain shortness of breath or headache. And she was fine this morning. Upon arrival in emergency department nursing staff indicates that she was alert and oriented x4 answering questions appropriately with vital signs but was complaining of some mild shortness of breath is on supplemental O2. Past medical history admitted for chronic back pain hypertension Social history and review of systems unobtainable at this time 1 PHYSICIAN EXAM -vital signs are noted triage note and note from triage reviewed GENERAL: General appearance the patient is chronically ill HEAD: Atraumatic, normocephalic. EYES: Pupils midrange and very sluggish. She had very minimal oculocephalic reflex ENT: nares patent, oropharynx clear NECK: No step-offs LUNGS: No breath sounds HEART: No heart sounds ABDOMEN: No masses obese EXTREMITIES: No deformity, +1 edema bilaterally to the mid calf and appreciate any cords NEUROLOGICAL: Unresponsive PSYCH: unAble to test. SKIN: Cool and dry BACK-no step-offs Shoulder to right ribs called to the bedside as he became apneic and went to the cardiac arrest. She had no pulses and was apneic. CPR was started. CPR patient started to wake up slightly and grimaced a little bit and CPR was stopped. She did have a palpable pulse. She underwent rapid sequence induction with etomidate lidocaine and rocuronium and was intubated with a 7.5 endotracheal tube with good breath sounds. 2 IVs were started shortly after this patient went into cardiac arrest again CPR was started. Did ACLS protocols were followed w case uns of Zach jennings treated with amiodarone During the time I reviewed the rhythm strip first arrived. She appears to have some questionable ST elevation versus some peak T waves. There is also a run of ventricular tachycardia because of concerns for possible high peak hyperkalemia she was given calcium chloride as well as a dose of magnesium she continued to have brief episodes of a pulse but never long enough to obtain a blood pressure. Occasions when she started to bradycardia down she was given atropine with no change. Ultrasound was applied which showed some very mild contractility but no significant pleural effusion. Continues to have good breath sounds so do not suspect a pneumothorax. Does have a history of leg pain and swelling there is concern for PE since he was in a PEA type rhythm and consider TPA contact the pharmacy for same. I went and talked to the family initially on arrival to get a brief history and then later to update them on patient's rather grave condition. Talk to him about living will patient did not have any requested everything be done. This patient still continues to have intermittent cardiac activity and would go into a PEA rhythm we did give the patient TPA. CPR was continued. Prior to TPA it was noted that she was having occasional blood from the endotracheal tube that was suctioned. This time she was also given IV fluids consider a tension pneumothorax which she had good breath sounds bilaterally did not feel that your thoracostomy was indicated. See I did not see any evident any evidence of a large effusion cardiac tamponade seem to be unlikely. At this point we did benefit a resuscitation for about an hour and 15 minutes and is felt that additional times a resuscitation would be futile. Point the code was called rhythm at that time was agonal had no breath sounds and no heart sounds family was advised this time is 7 and no indication for a medical clerical assistant case. During this time CPR was supervised by me Course - Re-evaluation Re-evalutation: 05/13/19 00:45 Of note patient was never stable enough obtain EKG and labs of not retained initially on arrival - Vital Signs Vital signs: Temp Pulse Resp BP Pulse Ox 22 H 89/69 L 100 05/12/19 16:52 05/12/19 16:52 05/12/19 16:43 Procedures - Intubation Orotracheal Airway evaluation: Normal anatomy Mallampati Classification: Class 3 Medications: Lidocaine, Etomidate, Vecuronium Intubation method: Orotracheal Blade type: Other Equipment used: Glidescope ETT size: 7.5 Breath Sounds after Intubation: Equal End tidal CO2 confirmed: Yes - Good breath sounds bilaterally Intubation Complications: No complications - Ultrasound/Bedside Ultrasound/Bedside Notes: 05/13/19 00:48 Informal bedside ultrasound was performed by me. The subxiphoid approach was used. Was able to visualize minimal cardiac activity with no evidence of large effusion Critical Care Note - Critical Care Note Total time excluding time spent on procedures (mins): 75 Comments: This did not include any time spent on billable procedures Discharge - Discharge Clinical Impression: Cardiac arrest, Ventricular arrhythmia Syncope Qualifiers: Syncope type: unspecified Qualified Code(s): R55 - Syncope and collapse Disposition: Referrals: LUCAS GARVEY MD [Primary Care Provider] - Follow up as needed
== END | disposition expired ==
LOC: ER 15:21
PROC: 0BH17EZ Insertion of Endotracheal Airway into Trachea, Via Natural or Artificial Opening (ICD-10-PCS; principal; 2019-05-12)
DX: I46.9 Cardiac arrest, cause unspecified (principal); I47.0 Re-entry ventricular arrhythmia; R55 Syncope and collapse; E11.9 Type 2 diabetes mellitus without complications; M54.9 Dorsalgia, unspecified; G89.29 Other chronic pain; I10 Essential (primary) hypertension
CPT/HCPCS: 99291; 99292; 92950; 96374; 96375; 82962; 94660; 31500; J0461; J0610; J3490 ×3; J0171; J3010; J2997; J0282